=== PATIENT | male | born 1970 | race Hispanic/Latino ===

== ENCOUNTER → 2019-09-01 | Outpatient (CLI) | payer OTHER ==
[2019-09-01] VITALS (7 sets, daily range): BP systolic 129–160; BP diastolic 81–96
[~2019-09-01] MED LIST: AEC81 PO; IOHEXOL-350 50ML VIAL IV ONE; LOSA50TA64 PO; METF-444 PO; SIMVASTATIN PO
[2019-09-01] MEDS: METOPROLOL TARTRATE 1 MG/ML 5ML VIAL IV ONE ×3 (09:37→09:42)
== END | disposition home or self-care (01) ==
LOC: RAH 07:52
PROVIDERS: ATTEND Internal Medicine Cardiovascular Disease
DX: J84.10 Pulmonary fibrosis, unspecified (principal); M47.819 Spondylosis without myelopathy or radiculopathy, site unspecified; I47.1 Supraventricular tachycardia; I10 Essential (primary) hypertension; K59.00 Constipation, unspecified
CPT/HCPCS: 71250; J3490 ×3; Q9967